=== PATIENT | female | born 1945 | race Caucasian/White ===

== ENCOUNTER 2016-12-11 10:15 | Outpatient (CLI) | payer MEDICARE, OTHER ==
[~2016-12-11] VITALS: Ht 149.9 cm; Wt 67.3 kg
[~2016-12-11 10:15] MED LIST: ASP81 PO; CAR120SR PO; CRES10 PO; LOSA100T47 PO
[2016-12-11] MEDS ORDERED: METO-448 PO (10:36)
[2016-12-11] MEDS ORDERED: ESTR50G TD (10:36)
[2016-12-11] MEDS ORDERED: BTM.05O15 TOP (10:36)
[2016-12-11] MEDS ORDERED: LEVO75TA75 PO (10:36)
[2016-12-11] MEDS ORDERED: ENAL20TA PO (10:36)
[2016-12-11] MEDS ORDERED: OMEP20CA16 PO (10:36)
[2016-12-11] MEDS ORDERED: ENAL10TA PO (10:36)
[2016-12-11] MEDS ORDERED: AMLO5TAB4 PO (10:36)
[2016-12-11] MEDS ORDERED: LORA10CA PO (10:36)
[2016-12-11 10:37] VITALS: BP 145/72; PULSE 82; RESP 16; Ht 149.9 cm; Wt 67.3 kg
--- NOTE | 2016-12-11 12:28 | CONS ---
Date/Time of Note Date/Time of Note DATE: 12/11/16 TIME: 10:58 Assessment/Plan Assessment/Plan Additional Assessment/Plan [facility] SUBSEQUENT OUTPATIENT CONSULTATION NOTE PLACE OF SERVICE: [facility]. IMPRESSION AND PLAN: A very pleasant 71-year-old lady with comorbid issues including elevated BMI, hypertension, possible hypothyroidism, and a number of other medical issues, whom we have been following for a small lesion in segment 8 of her liver which appears to be a benign hemangioma versus a focal nodular hyperplasia, and stable since January 2015. Multidisciplinary tumor board presentation this am agreed with follow up US in one year. Explained this to patient and family with careful review of 3 CT's and one US [id number], and answered all of their questions. Patient and family appeared to understand and agreed with plan. With the above assessment I have recommended the followin. Liver duplex US Dec 2017 2. Follow up with us after above is done. Thank you again for allowing us to participate in the care of this very pleasant lady and her wonderful family. If there are any questions, please feel free to call me at [phone]. TOTAL VISIT TIME: 45 minutes of which more than half was spent in [id number] discussion with the patient, discussions with her son, as well as coordination of care between multiple physicians and providers. HISTORY OF PRESENT ILLNESS: The patient is a very pleasant 71-year-old lady with multiple comorbid issues including hypertension, hypothyroidism, PTSD and obesity with a BMI of 30 (previously 32.9 who was incidentally found to have a lesion in her right lobe of the liver. At that time, working diagnosis was that of a benign lesion. An adenoma is also in the differential. The appearance of this lesion is that of a benign lesion to me as well and this is after careful review of her available imaging studies which includes CT scan from January 2015 as well as PET CT from May 2016. The patient also had an MRI which was not available to me for review. The report of the MRI mentions an 11 x 9 mm hepatic lesion. This was thought not to follow signal characteristics of a hemangioma and a differential included hepatic adenoma, atypical focal nodular hyperplasia and less likely malignancy. No significant change in size. This is over essentially 2 year followup between several axial images that are available. We also have the PET CT 2015 which essentially shows the same thing. This has been followed with multiple axial images since January of 2016. I was kindly asked initially in Jul 2016 to consult regarding management of this lesion. I had a chance today to meet the patient again and review all her images carefully and review the data carefully. The patient herself does not have any major complaints including no abdominal pain, no difficulty with eating , no prior issues with her liver and mainly only a small concern about the lesions that were found. Reports intentional 25 lb weight loss that she has accomplished by dietary means alone. PAST MEDICAL HISTORY: 1. Urinary incontinence. 2. PTSD. 3. Hypertension. 4. Hypothyroidism. 5. Gastroesophageal reflux disease. 6. History of thyroid nodules. 7. Bilateral primary osteoarthritis of knee. 8. 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 9. Nontoxic multinodular goiter. PAST SURGICAL HISTORY: None recorded. ALLERGIES: 1. NOVOCAIN. 2. PENICILLINS. MEDICATIONS: 1. Aspirin. 2. Diltiazem. 3. Losartan. 4. Crestor. SOCIAL HISTORY: The patient lives with her family. She does not report any major smoking, drinking or any intravenous drug use. FAMILY HISTORY: There is hypertension in the family in her father. REVIEW OF SYSTEMS: Other than the above-mentioned, there are no other pertinent positives or pertinent negatives in a complete 14-point review of systems. PHYSICAL EXAMINATION: GENERAL: The patient appears to be a very pleasant lady of [place] descent, appearing stated age and sitting in a chair comfortably and in no acute distress. BMI is 30 (previously 32.09 Jul 2016). VITAL SIGNS: Stable and she is afebrile. HEENT: Head is normocephalic and atraumatic. Her extraocular muscles and hearing are grossly intact bilaterally and symmetrically. Her sclerae are nonicteric. Her oral cavity is clear and her oral mucosa appeared to be pink and moist. She has fair dentition. NECK: Supple. There is no lymphadenopathy or JVD. There is no submental, submandibular or supraclavicular lymphadenopathy. CHEST: Rises symmetrically with each breath, and she is breathing comfortably. There are no audible wheezes, rales or rhonchi in the gross exam. Pulses are regular and palpable in her carotids bilaterally as well as on her right wrist. EXTREMITIES: Lower extremities contain no pitting edema around the ankles bilaterally and symmetrically. ABDOMEN: Soft, nontender and nondistended. There is no organomegaly or evidence of ascites. There are no peritoneal signs or guarding. SKIN: Appears to be pink and feels warm to touch. NEUROLOGIC: She is awake, alert, and follows commands appropriately. LABORATORY VALUES: Dated 05/06/2016 show a platelet count of 268, CO2 of 28, creatinine 0.7, albumin 4.5. Liver function and injury parameters are normal. Lipid studies are normal. TSH is elevated at 5. IMAGING: The patient has had a number of studies as mentioned above. CT abdomen thoracic aorta 01/31/2015 showed stable caliber of the ascending aorta measuring up to 3.9 cm. Minimal atherosclerotic plaque seen along the thoracic arch and abdominal aorta with no flow limiting stenosis. No suspicious pulmonary nodules and no mass, lymphadenopathy or focal infiltrate identified in the abdomen as well. CT of the chest with and without contrast 02/06/2016 showed dilatation of the ascending aorta of up to 40 x 40 mm. Multiple lung nodules were found and possible partial right thyroidectomy was noted. CT of the abdomen with and without contrast from the same date showed approximately 11 x 9 mm enhancing right lobe of the liver lesion. This may represent hemangioma. Evidence for cholecystectomy was also seen. MRI 03/26/2016 showed the same 11 x 9 mm hepatic lesion which did not follow signal characteristics of hemangioma. Whole body PET CT 06/19/2016 showed no abnormal foci of increased metabolic activity in the lungs, in the liver or elsewhere in the remainder of body. Liver protocol CT Oct 2016 Showed similar findings as above. Note, that I personally reviewed all of these images minus the MRI images and I agree in general with their overall findings. Consultation Date/Type/Reason Admit Date/Time Initial Consult Date Exam/Review of Systems Vital Signs Vitals Vital Signs Date Time Temp Pulse Resp B/P Pulse Ox O2 Delivery O2 Flow Rate FiO2 12/11/16 10:37 98.8 82 16 145/72 96 Room Air KVNG ESCOBAR M.D. Dec 11, 2016 11:08
== END 2016-12-11 16:52 | disposition home or self-care (01) ==
LOC: HPC 10:15
PROVIDERS: ATTEND Transplant Surgery
DX: K76.9 Liver disease, unspecified (principal); I10 Essential (primary) hypertension; Z87.19 Personal history of other diseases of the digestive system; Z88.0 Allergy status to penicillin; Z88.4 Allergy status to anesthetic agent; Z79.82 Long term (current) use of aspirin; Z82.49 Family history of ischemic heart disease and other diseases of the circulatory system
CPT/HCPCS: G0463

== ENCOUNTER → 2018-02-02 | Outpatient (CLI) | END | disposition home or self-care (01) ==

== ENCOUNTER 2018-02-11 15:07 | Outpatient (CLI) | END 2018-02-11 15:56 | disposition home or self-care (01) ==

== ENCOUNTER 2018-12-26 13:49 | Emergency (ER) | payer MEDICARE, OTHER ==
[~2018-12-26] VITALS: Ht 157.5 cm; Wt 50.0 kg
[~2018-12-26 13:49] MED LIST changes: +AMLO5TAB4 PO; -ASP81 PO; +ASPI-831 PO; +BTM.05O15 TOP; -CRES10 PO; +ENAL10TA PO; +ENAL20TA PO; +ESTR50G TD; +LEVO75TA84 PO; +LORA10CA PO; +LOSA100T3 PO; -LOSA100T47 PO; +METO-448 PO; +OMEP20CA16 PO; +ROSU10TA55 PO
[2018-12-26 13:55] VITALS: BP 109/57; PULSE 86; RESP 18; Ht 157.5 cm; Wt 50.0 kg
== END 2018-12-26 15:46 | disposition left against medical advice (07) ==
LOC: E/R 13:49
DX: Z53.21 Procedure and treatment not carried out due to patient leaving prior to being seen by health care provider (principal)